=== PATIENT | male | born 1945 | race Caucasian/White ===

== ENCOUNTER → 2019-12-08 | Outpatient (CLI) | payer MEDICARE, BC ==
[~2019-12-08] MED LIST: BAYER CHEWABLE81 MG PO; DILTIAZEM 24HR120 M2 PO; FLEXERIL PO; JALYN 0.5-0.41 EACH; JALYN 0.5-0.41 EACH PO; LEVOXYL100 MCG PO; LIPITOR40 MG PO; NEXIUM40 MG PO; RYTHMOL 150MG150 M1 PO; ULTRAM 50MG TAB50 MG PO
== END ==
LOC: M.NUC 12-02 14:16
PROVIDERS: ATTEND Physical Medicine & Rehabilitation
DX: M47.814 Spondylosis without myelopathy or radiculopathy, thoracic region (principal); M25.78 Osteophyte, vertebrae

== ENCOUNTER → 2020-01-03 | Outpatient (CLI) | payer MEDICARE, BC ==
[2020-01-03 15:51] LABS: CREATININE 1.2 mg/dL (0.6-1.3)
== END ==
LOC: M.LAB 15:29 → M.MRI 16:30
PROVIDERS: ATTEND Physical Medicine & Rehabilitation
DX: M47.814 Spondylosis without myelopathy or radiculopathy, thoracic region (principal); K44.9 Diaphragmatic hernia without obstruction or gangrene

== ENCOUNTER → 2020-02-03 | Outpatient (CLI) | payer MEDICARE, BC | LOC: M.CT 14:05 | PROVIDERS: ATTEND Specialist | DX: N40.0 Benign prostatic hyperplasia without lower urinary tract symptoms (principal); R93.49 Abnormal radiologic findings on diagnostic imaging of other urinary organs; K57.90 Diverticulosis of intestine, part unspecified, without perforation or abscess without bleeding; K44.9 Diaphragmatic hernia without obstruction or gangrene; K40.30 Unilateral inguinal hernia, with obstruction, without gangrene, not specified as recurrent ==